=== PATIENT | male | born 1960 | race Caucasian/White ===

== ENCOUNTER 2017-03-06 06:36 | Inpatient (IN) | payer BC ==
[2017-03-06] MEDS ORDERED: dilTIAZem HCL 50 MG/10 ML - 10 ML VIAL IVPUSH ONE ×3 (06:56→14:00)
[2017-03-06] MEDS ORDERED: SODIUM CHLORIDE 0.9% 1000 ML INFUS.BAG IV ONE (06:57)
[2017-03-06 07:00] VITALS: BMI 24.0
[2017-03-06] MEDS ORDERED: dilTIAZem HCL 125 MG/25 ML - 25 ML VIAL ONE ×2 (07:13→08:36)
--- NOTE | 2017-03-06 07:19 | PDOC ---
History of Present Illness - General Chief Complaint: Irregular Heart Beat Stated Complaint: IRREGULAR HEARTBEAT Time Seen by Provider: 03/06/17 06:54 - History of Present Illness Initial Comments: 03/06/17 07:18 Patient is a 56 y.o. male with a PMH of Atrial Fibrillation w/L sided PE who presents to our ED this morning w/ a c/o of palpitations, one episode of watery non-bloody diarrhea that woke him from sleep. Patient states he has a h/o PE in 2008 for which he was on Warfarin for 2 years. He subsequently was on Metoprolol for AFib which was also discontinued. Patient denies any current shortness of breath, chest pain or lightheadedness as well any any identifiable inciting events including fevers, recent over exertion or medication changes. Patient notes after onset of symptoms he called Dr. Amaral, his PCP, who instructed him to come to the ED for evaluation. Allergy: Penicillin PMD: Androne Social: denies cigarettes, social alcohol, denies recreational drugs Past History - Past Medical History Allergies/Adverse Reactions: Allergies Allergy/AdvReac Type Severity Reaction Status Date / Time Penicillins AdvReac Itching Verified 03/06/17 06:50 Home Medications: Ambulatory Orders Loratadine [Claritin -] 10 mg PO DAILY 09/27/15 Aspirin [Ethan Chewable] 81 mg PO DAILY 03/06/17 Cardiac Disorders: Yes (afib after ruptured kidney stone; took meds for 2 years. no recurrence) Kidney Stones: Yes - Surgical History Appendectomy: Yes - Immunization History Immunization Up to Date: Yes - Suicide/Smoking/Psychosocial Hx Smoking Status: No Smoking History: Never smoked Have you smoked in the past 12 months: No Number of Cigarettes Smoked Daily: 0 Information on smoking cessation initiated: No Hx Alcohol Use: No Drug/Substance Use Hx: No Substance Use Type: None Review of Systems - Review of Systems Constitutional: No: Chills, Fever HEENTM: No: Blurred Vision, Double Vision Respiratory: No: Cough, Shortness of Breath Cardiac (ROS): Yes: Palpitations. No: Chest Pain, Lightheadedness, Chest Tightness ABD/GI: Yes: Diarrhea (watery, formed stool, non) *Physical Exam - Vital Signs Last Vital Signs Temp Pulse Resp BP Pulse Ox 140 H 14 91/69 100 03/06/17 06:51 03/06/17 06:51 03/06/17 06:51 03/06/17 06:51 ED Treatment Course - LABORATORY CBC & Chemistry Diagram: 03/06/17 08:04 03/06/17 07:11 - Medications Given in the ED: ED Medications Discontinued Medications Generic Name Dose Route Start Last Admin Trade Name Yvan PRN Reason Stop Dose Admin Diltiazem HCl 15 mg 03/06/17 06:56 03/06/17 07:11 Cardizem Injection - IVPUSH 03/06/17 06:57 15 mg ONCE ONE Administration Sodium Chloride 1,000 ml 03/06/17 06:57 03/06/17 07:11 Normal Saline - IV 03/06/17 06:58 1,000 ml ONCE ONE Administration Medical Decision Making - Medical Decision Making 03/06/17 07:40 Patient is a 56 y.o. male who presents with acute onset of Atrial Fibrillation ( previous AFib with PE, however not currently on A/C) with HR 140's. PLAN: 1. Dilitiazem 2. 1 L IV NS Reasess 03/06/17 08:38 EKG shows Afib HR 141, no deviations, poor R wave progression leads V4-V6. Patient remains tachycardic (100's-140's) as well as hypotensive (90's/70's) s/ p 1 L IV NS. Patient to be adminstered additional 1 L IV NS as well as 20 Dilitiazem. Labs pending. Patient may need A/C prior to discharge, likely disposition is OB admission 03/06/17 09:38 Case d/w cardiology (Dr. Santana) covering for Dr. Rasheed. Patient to be administered Heparin with plans to transition to outpatient oral therapy. Patient to be admitted to observation telemetry under Dr. Amaral. Repeat VS 115/70 HR 90's-120's s/p 2 L IV NS as well as Cardizem IV x2 as well Cardizem 30 PO. Will continue to monitor patient while he remains in ED. *DC/Admit/Observation/Transfer Diagnosis at time of Disposition: Atrial fibrillation - Discharge Dispostion Condition at time of disposition: Good Admit: No - Referrals Referrals: Randy Amaral MD [Primary Care Provider] - - Patient Instructions - Post Discharge Activity
--- NOTE | 2017-03-06 07:30 | PDOC ---
Attending Attestation - Resident Resident Name: Martina Rader - HPI HPI: 03/06/17 08:55 Pt presents to the ED complaining of palpitations. Patient awoke with an episode of severe diarrhea at 3 am. after diarrhea resolved, patient continued to feel palpitations, and presented to the ED. Denies shortness of breath or chest pain. Denie slightheadness. Patient has had rapid a fib in the past, was treated with metoprolol for two years, and did not have any recurrent episodes, so metoprolol was discontinued. - Physicial Exam PE: 03/06/17 08:57 Agree with resident exam. Patient is well appearing, and alert and oriented x 3 , but is tachycardic. - Medical Decision Making 03/06/17 08:58 Pt presents to the ED with rapid a fib. Denies chest pain or shortness of breath. Tachycardic and mildly hypotensive, improving after IV fluid and cardizem. Will admit for observation, continue IVF, give PO cardizem.
[2017-03-06 08:12] LABS: BASOPHIL 0.3 % (0-2.0); EOSINOPHIL 0.6 % (0-4.5); MCH 26.7 pg (25.7-33.7); MCHC 32.7 g/dl (32.0-35.9); MEAN CELL VOLUME 81.8 fl (80-96); MEAN PLT VOLUME 9.1 fl (7.5-11.1); PLATELET COUNT 227 K/MM3 (134-434); RDW 13.4 % (11.9-15.9)
[2017-03-06 08:28] LABS: INR 1.08 (0.82-1.09); PROTHROMBIN TIME (PATIENT) 12.2 SEC (9.98-11.88)
[2017-03-06 08:31] LABS: ACTIVATED PTT 27.4 SECONDS (26.9-34.4)
[2017-03-06] MEDS ORDERED: SODIUM CHLORIDE 0.9% 500 ML INFUS.BAG IV ONE (08:32)
[2017-03-06 08:44] LABS: ALBUMIN 3.6 g/dl (3.4-5.0); ANION GAP 11 (8-16); BILIRUBIN,TOTAL 0.5 mg/dL (0.2-1.0); CALCIUM 8.1 mg/dL (8.5-10.1); CO2 25 mmol/L (21-32); CPK 150 IU/L (39-308); CREATININE 1.1 mg/dL (0.7-1.3); GLUCOSE,RANDOM 102 mg/dL (74-106); SGOT/AST 20 U/L (15-37); SGPT/ALT 31 U/L (12-78); TOT PROT 6.7 g/dl (6.4-8.2)
[2017-03-06 08:47] LABS: ALK PHOS 72 U/L (45-117); TROPONIN I < 0.02 ng/ml (0.00-0.05)
[2017-03-06] MEDS ORDERED: HEPARIN NA (PORCINE) 5,000 UNITS/ML 1ML VIAL IVPUSH PRN ×4 (09:05→09:35)
[2017-03-06] MEDS ORDERED: HEPARIN INFUSION - 500 ML IV SCH (09:15)
[2017-03-06] MEDS ORDERED: dilTIAZem HCL 30 MG TABLET (FP) PO ONE (09:24)
[2017-03-06] MEDS ORDERED: HEPARIN INFUSION - 25,000 UNITS/500 ML INFUS.BAG IVPB ONE (09:28)
[2017-03-06] MEDS ORDERED: dilTIAZem HCL 30 MG TABLET (FP) ONE (09:28)
[2017-03-06] MEDS: HEPARIN INFUSION - 25,000 UNITS/500 ML INFUS.BAG IVPB SCH ×2 (09:58→17:32)
--- NOTE | 2017-03-06 13:52 | HP ---
Admitting History and Physical - Primary Care Physician PCP: Randy Amaral - Admission Chief Complaint: Palpitations History of Present Illness: Pt woke up this 4 AM with paplitation, slightly lightheadedness, no SOB, CP; pt also had an episode of diarrhea. Pt with Hx/o PE, was on Warfarin for couple of years, and A Fib. History Source: Patient - Past Medical History Cardiovascular: Yes: AFIB Pulmonary: Yes: Pulmonary Embolus - Smoking History Smoking history: Never smoked Have you smoked in the past 12 months: No Aproximately how many cigarettes per day: 0 - Alcohol/Substance Use Hx Alcohol Use: No Home Medications - Allergies Allergies/Adverse Reactions: Allergies Allergy/AdvReac Type Severity Reaction Status Date / Time Penicillins AdvReac Itching Verified 03/06/17 06:50 - Home Medications Home Medications: Ambulatory Orders Loratadine [Claritin -] 10 mg PO DAILY 09/27/15 Aspirin [Ethan Chewable] 81 mg PO DAILY 03/06/17 Review of Systems - Review of Systems Constitutional: denies: Chills, Fever Eyes: reports: Blurred Vision. denies: Double Vision HENT: denies: Ear Discharge, Ear Pain, Epistaxis, Nasal Congestion Cardiovascular: denies: Chest Pain, Edema, Palpitations Respiratory: reports: Wheezing. denies: Cough, SOB Gastrointestinal: reports: Vomiting. denies: Abdominal Pain, Constipation, Diarrhea, Nausea Genitourinary: denies: Burning, Discharge, Dysuria, Flank Pain Musculoskeletal: denies: Back Pain, Joint Swelling Integumentary: denies: Bruising, Rash Neurological: denies: Change in LOC, Change in Speech, Confusion Endocrine: denies: Excessive Sweating, Intolerance to Cold Psychiatric: denies: Altered Sleep Pattern, Anxiety, Depression Physical Examination Vital Signs: Vital Signs Temperature 98.2 F 03/06/17 13:41 Pulse Rate 144 H 03/06/17 13:41 Respiratory Rate 14 03/06/17 13:41 Blood Pressure 114/68 03/06/17 13:41 O2 Sat by Pulse Oximetry (%) 99 03/06/17 12:14 Constitutional: Yes: No Distress, Calm Eyes: Yes: Conjunctiva Clear, EOM Intact, PERRL HENT: Yes: Normocephalic. No: Epistaxis, Rhinnorhea Neck: Yes: Trachea Midline. No: Lymphadenopathy Cardiovascular: Yes: Tachycardia, S1, S2 Respiratory: Yes: CTA Bilaterally. No: Rales Gastrointestinal: Yes: Normal Bowel Sounds, Soft. No: Tenderness ...Rectal Exam: Yes: Deferred Renal/: No: CVA Tenderness - Left, CVA Tenderness - Right Musculoskeletal: No: Back Pain, Joint Stiffness, Joint Swelling Edema: No Integumentary: No: Rash Neurological: Yes: Alert, Oriented, Cran Nerves II-XII Intact Labs: CBC, BMP 03/06/17 08:04 03/06/17 07:11 Imaging - Results Chest X-ray: Report Reviewed Problem List - Problems (1) Chronic atrial fibrillation with rapid ventricular response Code(s): I48.2 - CHRONIC ATRIAL FIBRILLATION (2) History of pulmonary embolism Code(s): Z86.711 - PERSONAL HISTORY OF PULMONARY EMBOLISM Assessment/Plan IAdmit to Telemetry Cardizem IV PRN Cardizem PO IV Heparin Cardio Consult Serial CE. AM labs Pt's condition was reviewed with pt and his ; all questions were answered.
[2017-03-06] MEDS ORDERED: METOPROLOL TARTRATE 25 MG TABLET (FP) PO SCH (14:15)
[2017-03-06] MEDS: dilTIAZem HCL 30 MG TABLET (FP) PO SCH ×3 (15:41→21:20)
[2017-03-06 16:10] LABS: CPK 121 IU/L (39-308); TROPONIN I < 0.02 ng/ml (0.00-0.05)
[2017-03-06] MEDS ORDERED: dilTIAZem HCL 50 MG/10 ML - 10 ML VIAL IVPUSH PRN (16:18)
--- NOTE | 2017-03-06 16:31 | EKG ---
Test Reason : Blood Pressure : / mmHG Vent. Rate : 141 BPM Atrial Rate : 147 BPM P-R Int : 000 ms QRS Dur : 094 ms QT Int : 308 ms P-R-T Axes : 000 051 044 degrees QTc Int : 471 ms ATRIAL FIBRILLATION WITH RAPID VENTRICULAR RESPONSE NONSPECIFIC ST ABNORMALITY ABNORMAL ECG WHEN COMPARED WITH ECG OF 09-JAN-2013 09:41, ATRIAL FIBRILLATION HAS REPLACED SINUS RHYTHM VENT. RATE HAS INCREASED BY [address] NOW DEPRESSED IN INFERIOR LEADS Confirmed by IHSAN MARQUES MD ([id number]) on 03/06/2017 4:31:19 PM Referred By: Confirmed By:IHSAN MARQUES MD
[2017-03-07 08:03] LABS: ANION GAP 9 (8-16); CALCIUM 8.2 mg/dL (8.5-10.1); CO2 24 mmol/L (21-32); GLUCOSE,RANDOM 101 mg/dL (74-106)
[2017-03-07] MEDS: dilTIAZem HCL 30 MG TABLET (FP) PO SCH (09:16)
--- NOTE | 2017-03-07 10:25 | CON.CARD ---
Consult Consult Specialty:: Cardiology Referred by:: Randy Amaral MD Reason for Consultation:: Rapid atrial fibrillation - History of Present Illness Chief Complaint: Palpitations History of Present Illness: Pt with h/o PE, paroxysmal afib off meds awoke with palpitation, mild lightheadedness, without associated SOB, chest pain, true syncope, referable to rapid afib, now in sinus rhythm after rate-control with Cardizem, also episode of diarrhea. He reports fatigue on Toprol XL previously prescribed improved after reduction of dose. - History Source History Provided By: Patient Limitations to Obtaining History: No Limitations - Past Medical History Cardio/Vascular: Yes: AFIB Pulmonary: Yes: Pulmonary Embolus - Alcohol/Substance Use Hx Alcohol Use: No - Smoking History Smoking history: Never smoked Have you smoked in the past 12 months: No Aproximately how many cigarettes per day: 0 Home Medications - Allergies Allergies/Adverse Reactions: Allergies Allergy/AdvReac Type Severity Reaction Status Date / Time Penicillins AdvReac Itching Verified 03/06/17 06:50 - Home Medications Home Medications: Ambulatory Orders Loratadine [Claritin -] 10 mg PO DAILY 09/27/15 Aspirin [Ethan Chewable] 81 mg PO DAILY 03/06/17 Review of Systems - Review of Systems Cardiovascular: reports: Palpitations Neurological: reports: Dizziness Vital Signs: Vital Signs Temperature 98 F 03/07/17 08:07 Pulse Rate 72 03/07/17 08:07 Respiratory Rate 20 03/07/17 08:07 Blood Pressure 117/72 03/07/17 08:07 O2 Sat by Pulse Oximetry (%) 98 03/07/17 08:00 Constitutional: Yes: No Distress, Calm Neck: Yes: Supple Respiratory: Yes: Regular, CTA Bilaterally Gastrointestinal: Yes: Normal Bowel Sounds, Soft Cardiovascular: Yes: Regular Rate and Rhythm JVD: No Carotid Bruit: No Heart Sounds: Yes: S1, S2 Murmur: Yes: Systolic Murmur, Grade 1 Edema: No - Other Data Labs, Other Data: CBC, BMP 03/06/17 08:04 03/07/17 05:19 INR, PTT INR 1.08 (0.82-1.09) 03/06/17 07:11 Troponin, BNP 03/06/17 14:40 Troponin I < 0.02 Troponin, BNP 03/06/17 14:40 Troponin I < 0.02 Afib @ 141 Tele: Afib->SR Ejection Fraction %: LVEF > or = 40 % Imaging - Results Chest X-ray: Report Reviewed (NAD) Problem List - Problems (1) Palpitations Code(s): R00.2 - PALPITATIONS (2) Atrial fibrillation Code(s): I48.91 - UNSPECIFIED ATRIAL FIBRILLATION Qualifiers: Atrial fibrillation type: paroxysmal Qualified Code(s): I48.0 - Paroxysmal atrial fibrillation (3) History of pulmonary embolism Code(s): Z86.711 - PERSONAL HISTORY OF PULMONARY EMBOLISM Assessment/Plan 03/06/2017 Echo: Normal biventricular size and fxn, mild MR, normal biatrial sizes 1. Palpitations referable to 2. Paroxysmal atrial fibrillation-> Sinus rhythm [id number] 3. H/o pulmonary embolism post anticoagulation course P:1. Change Cardizem CD 120 qd 2. D/c heparin and continue Asa 81 QD given low risk score 3. Patient may be d/mari from CV standpoint with f/u in office 4. Addressed option of PVI for PAF if recurs, not interested at this time 5. Thank you for consultative opportunity
--- NOTE | 2017-03-07 10:37 | PN ---
Progress Note, Physician History of Present Illness: Pt w/o Sob, CP, palp, dizzness, lightheadedness, blurry vision. - Current Medication List Current Medications: Active Medications Diltiazem HCl (Cardizem -) 30 mg PO QID DAVI Last Admin: 03/07/17 09:16 Dose: 30 mg Diltiazem HCl (Cardizem Injection -) 10 mg IVPUSH Q4H PRN Last Admin: 03/06/17 18:45 Dose: 10 mg Heparin Sodium (Porcine) (Heparin -) 1,000 unit IVPUSH PRN PRN PRN Reason: Heparin Heparin Sodium (Porcine) (Heparin -) 5,000 unit IVPUSH PRN PRN PRN Reason: Heparin Last Admin: 03/06/17 17:32 Dose: 5,000 unit Heparin Sodium/Dextrose (Heparin Infusion -) 25,000 units in 500 mls @ 16 mls/ hr IVPB TITR DAVI; 800 UNITS/HR PRN Reason: Protocol Last Titration: 03/07/17 08:14 Dose: 800 units/hr, 16 mls/hr - Objective Vital Signs: Vital Signs Temperature 98 F 03/07/17 08:07 Pulse Rate 72 03/07/17 08:07 Respiratory Rate 20 03/07/17 08:07 Blood Pressure 117/72 03/07/17 08:07 O2 Sat by Pulse Oximetry (%) 98 03/07/17 08:00 Constitutional: Yes: No Distress, Calm Cardiovascular: Yes: Regular Rate and Rhythm, S1, S2 Respiratory: Yes: Regular, CTA Bilaterally Gastrointestinal: Yes: Normal Bowel Sounds, Soft. No: Tenderness Edema: No Neurological: Yes: Alert, Oriented, Cran Nerves II-XII Intact Labs: CBC, BMP 03/06/17 08:04 03/07/17 05:19 INR, PTT INR 1.08 (0.82-1.09) 03/06/17 07:11 Problem List - Problems (1) Chronic atrial fibrillation with rapid ventricular response Code(s): I48.2 - CHRONIC ATRIAL FIBRILLATION (2) History of pulmonary embolism Code(s): Z86.711 - PERSONAL HISTORY OF PULMONARY EMBOLISM Assessment/Plan Pt is admitted to Telemetry. Cardizem PO. IV Heparin. Cardio Consult appreciated; case was d/w Dr. Rasheed, pt to be switched to PO Cardizem CD, no need for AC, have EKG repeated, walk and monitor HR. If all is w /i NL to send pt home today. Case was d/w pt's nurse
[2017-03-07] MEDS ORDERED: ASPIRIN 81 MG CHEWABLE TABLETS PO SCH (11:00)
--- NOTE | 2017-03-07 11:16 | EKG ---
Test Reason : Blood Pressure : / mmHG Vent. Rate : 136 BPM Atrial Rate : 150 BPM P-R Int : 000 ms QRS Dur : 086 ms QT Int : 322 ms P-R-T Axes : 000 060 061 degrees QTc Int : 484 ms ATRIAL FIBRILLATION WITH RAPID VENTRICULAR RESPONSE ABNORMAL ECG Confirmed by PIERCE KRAMER MD ([id number]) on 03/07/2017 11:16:23 AM Referred By: Confirmed By:PIERCE KRAMER MD
[2017-03-07 14:01] VITALS: BP 106/65; PULSE 73; TEMP 98.7
--- NOTE | 2017-03-07 14:51 | DS ---
Physical Examination Vital Signs: Vital Signs Temperature 98.7 F 03/07/17 14:01 Pulse Rate 73 03/07/17 14:01 Respiratory Rate 20 03/07/17 14:01 Blood Pressure 106/65 03/07/17 14:01 O2 Sat by Pulse Oximetry (%) 98 03/07/17 08:00 Findings/Remarks: SEE AM Progress Note Labs: CBC, BMP 03/06/17 08:04 03/07/17 05:19 Discharge Summary Reason For Visit: ATRIAL FIBRILLATION Current Active Problems Atrial fibrillation (Acute) Chronic atrial fibrillation with rapid ventricular response (Acute) History of pulmonary embolism (Acute) Palpitations (Acute) Procedures: Principal: ECHO Other Procedures: CXR. EKGs Hospital Course: Pt came to ER after wake up with palpitations, felt his heart beating fast. IN ER pt was found in A FIB with RVR. Pt received Cardizem IV and PO, started on IV Heparin, admitted to Telemetry; he converted to SR, CE were negative. Pt was seen by Cardio (Dr. Rasheed) and cleared for DC with ouptpatient f/u. Condition: Good - Instructions Diet, Activity, Other Instructions: Regular Referrals: Jed Rasheed MD [Staff Physician] - (in 1-2 weeks) Randy Amaral MD [Primary Care Provider] - (next week) Disposition: HOME - Home Medications Comprehensive Discharge Medication List: Ambulatory Orders Loratadine [Claritin -] 10 mg PO DAILY 09/27/15 Aspirin [Ethan Chewable Aspirin] 81 mg PO DAILY 03/06/17 Diltiazem Cd [Cardizem Cd -] 120 mg PO DAILY. Start 03/08/2017
--- NOTE | 2017-03-11 15:47 | EKG ---
Test Reason : Blood Pressure : / mmHG Vent. Rate : 069 BPM Atrial Rate : 069 BPM P-R Int : 132 ms QRS Dur : 102 ms QT Int : 396 ms P-R-T Axes : 056 058 058 degrees QTc Int : 424 ms NORMAL SINUS RHYTHM INCOMPLETE RBBB WHEN COMPARED WITH ECG OF 06-MAR-2017 08:38, SINUS RHYTHM HAS REPLACED ATRIAL FIBRILLATION Confirmed by CHAR PUGH MD ([id number]) on 03/11/2017 3:46:39 PM Referred By: Confirmed By:CHAR PUGH MD
--- NOTE | 2017-03-11 15:50 | EKG ---
Test Reason : Blood Pressure : / mmHG Vent. Rate : 086 BPM Atrial Rate : 326 BPM P-R Int : 000 ms QRS Dur : 094 ms QT Int : 348 ms P-R-T Axes : 000 054 055 degrees QTc Int : 416 ms ATRIAL FIBRILLATION RSR' ABNORMAL ECG WHEN COMPARED WITH ECG OF 06-MAR-2017 08:31, VENT. RATE HAS DECREASED BY 50 BPM Confirmed by CHAR PUGH MD ([id number] on 03/11/2017 3:49:39 PM Referred By: Confirmed By:CHAR PUGH MD
== END 2017-03-07 15:05 | disposition home or self-care (01) | DRG 310 ==
LOC: JER 06:36 → JERBED 09:36 → J4W 13:19 → OBSVTOIN 13:41
PROVIDERS: ADMIT Specialist; ATTEND Specialist
DX: I48.0 Paroxysmal atrial fibrillation (principal); R00.2 Palpitations; Z86.711 Personal history of pulmonary embolism
CPT/HCPCS: 36415; 71010-TC; 80048; 80053; 82550; 82553; 83735; 84443; 84484; 85025; 85610; 85730; 93005; 93010; 93306-TC; 99285-25; G0378; J1644

== ENCOUNTER 2020-10-18 09:08 | Inpatient (IN) | payer BC, OTHER ==
[2020-10-18 09:37] VITALS: BMI 26.6
[2020-10-18] MEDS ORDERED: LACTATED RINGERS SOLUTION 1,000 ML/1,000 ML INFUS.BAG IV STA (09:51)
[2020-10-18] MEDS ORDERED: dilTIAZem HCL 50 MG/10 ML - 10 ML VIAL IVPUSH ONE ×3 (09:51→13:49)
[2020-10-18] MEDS ORDERED: dilTIAZem HCL 125 MG/25 ML - 25 ML VIAL ONE ×2 (10:02→14:10)
[2020-10-18 10:11] LABS: BASO % 0.4 % (0-2.0); EOS % 0.6 % (0-4.5); HEMATOCRIT 48.5 % (35.4-49); HEMOGLOBIN 15.9 GM/dL (11.7-16.9); LYMPH % 14.3 % (8-40); MCH 26.6 pg (25.7-33.7); MCHC 32.9 g/dl (32.0-35.9); MEAN PLT VOLUME 8.6 fl (7.5-11.1); MONO % 7.1 % (3.8-10.2); NEUT % 77.6 % (42.8-82.8); PLATELET COUNT 234 10^3/uL (134-434); RBC 5.99 M/mm3 (4.00-5.60); RDW 14.3 % (11.9-15.9); WHITE BLOOD COUNT 11.3 K/mm3 (4.0-10.0)
[2020-10-18 10:17] LABS: INR 1.02 (0.83-1.09); PROTHROMBIN TIME (PATIENT) 12.5 SEC (9.7-13.0)
[2020-10-18 10:28] LABS: CHLORIDE 106 mmol/L (98-107); SODIUM 138 mmol/L (136-145)
[2020-10-18 10:30] LABS: ALBUMIN 4.1 g/dl (3.4-5.0); ANION GAP 14 MMOL/L (8-16); BLOOD UREA NITROGEN 11.9 mg/dL (7-18); CALCIUM 9.1 mg/dL (8.5-10.1); CO2 18 mmol/L (21-32); GLUCOSE,RANDOM 127 mg/dL (74-106)
[2020-10-18 10:32] LABS: SGOT/AST 27 U/L (15-37); SGPT/ALT 33 U/L (13-61)
[2020-10-18 10:34] LABS: TOT PROT 7.4 g/dl (6.4-8.2)
[2020-10-18 10:36] LABS: ALK PHOS 79 U/L (45-117)
[2020-10-18] MEDS ORDERED: dilTIAZem HCL 30 MG TABLET PO ONE (12:07)
[2020-10-18] MEDS ORDERED: dilTIAZem HCL 30 MG TABLET ONE (12:42)
[2020-10-18 13:40] LABS: PH,URINE 8.5 (5.0-8.0); URINE APPEARANCE CLEAR; URINE BILIRUBIN NEGATIVE (NEGATIVE); URINE COLOR YELLOW; URINE GLUCOSE (UA) NEGATIVE (NEGATIVE); URINE KETONE 1+ (NEGATIVE); URINE LEUK ESTERASE NEGATIVE (NEGATIVE); URINE NITRITE NEGATIVE (NEGATIVE); URINE PROTEIN TRACE (NEGATIVE); URINE UROBILINOGEN 0.2 mg/dL (0.2-1.0)
[2020-10-18] MEDS ORDERED: METOPROLOL TARTRATE 5 MG/5 ML VIAL IVPUSH ONE (15:07)
[2020-10-18] MEDS ORDERED: METOPROLOL TARTRATE 5 MG/5 ML VIAL ONE (15:09)
[2020-10-18] MEDS ORDERED: APIXABAN 5 MG TABLET ONE (16:38)
[2020-10-18] MEDS ORDERED: METOPROLOL TARTRATE 50 MG TABLET (FP) ONE (17:42)
[2020-10-18] MEDS: METOPROLOL TARTRATE 50 MG TABLET (FP) PO SCH ×2 (18:05→22:46)
[2020-10-19 07:26] LABS: BASO % 0.3 % (0-2.0); EOS % 0.7 % (0-4.5); HEMATOCRIT 45.1 % (35.4-49); HEMOGLOBIN 14.7 GM/dL (11.7-16.9); LYMPH % 22.9 % (8-40); MCH 26.7 pg (25.7-33.7); MCHC 32.6 g/dl (32.0-35.9); MEAN CELL VOLUME 81.8 fl (80-96); MEAN PLT VOLUME 8.6 fl (7.5-11.1); MONO % 9.9 % (3.8-10.2); NEUT % 66.2 % (42.8-82.8); PLATELET COUNT 209 10^3/uL (134-434); RBC 5.51 M/mm3 (4.00-5.60); RDW 14.4 % (11.9-15.9)
[2020-10-19 07:47] LABS: ALBUMIN 3.3 g/dl (3.4-5.0); CALCIUM 8.5 mg/dL (8.5-10.1)
[2020-10-19 07:49] LABS: BLOOD UREA NITROGEN 14.5 mg/dL (7-18); CREATININE 1.1 mg/dL (0.55-1.3)
[2020-10-19 07:50] LABS: TOT PROT 6.2 g/dl (6.4-8.2)
[2020-10-19] MEDS: ASPIRIN 81 MG CHEWABLE TABLETS PO SCH (10:00)
[2020-10-20] MEDS: ASPIRIN 81 MG CHEWABLE TABLETS PO SCH (09:34)
[2020-10-20 11:51] VITALS: BP 109/74; PULSE 62; TEMP 98.6
== END 2020-10-20 13:51 | disposition home or self-care (01) | DRG 310 ==
LOC: JER 09:08 → JERBED 13:47 → J4W 18:18
PROVIDERS: ADMIT Specialist; ATTEND Specialist
DX: I48.91 Unspecified atrial fibrillation (principal); R42 Dizziness and giddiness; Z86.711 Personal history of pulmonary embolism; M54.5 Low back pain
CPT/HCPCS: 36415; 71045-TC-FY; 80053; 81003; 82550; 82553; 82962; 84439; 84443; 84484; 85025; 85610; 85730; 86850; 86900; 86901; 87086; 93005; 93010; 99285-25; C9803; U0003; U0005

== ENCOUNTER 2023-05-05 10:06 | Inpatient (IN) | payer OTHER ==
[2023-05-05] MEDS ORDERED: SODIUM CHLORIDE 1,000 ML IV STA (11:59)
[2023-05-05 12:39] LABS: BASO % 0.2 % (0-2.0); EOS % 0.3 % (0-4.5); HEMATOCRIT 48.1 % (35.4-49); HEMOGLOBIN 15.8 GM/dL (11.7-16.9); LYMPH % 14.5 % (8-40); MCH 26.9 pg (25.7-33.7); MCHC 32.7 g/dl (32.0-35.9); MEAN PLT VOLUME 8.7 fl (7.5-11.1); MONO % 9.6 % (3.8-10.2); NEUT % 75.4 % (42.8-82.8); PLATELET COUNT 255 10^3/uL (134-434); RBC 5.87 M/mm3 (4.00-5.60); RDW 13.8 % (11.9-15.9); WHITE BLOOD COUNT 11.9 K/mm3 (4.0-10.0)
[2023-05-05 13:03] LABS: POTASSIUM 3.9 mmol/L (3.5-5.1)
[2023-05-05 13:05] LABS: CALCIUM 9.9 mg/dL (8.5-10.1)
[2023-05-05 13:06] LABS: ALBUMIN 3.8 g/dl (3.4-5.0); BLOOD UREA NITROGEN 15.1 mg/dL (7-18)
[2023-05-05 13:10] LABS: BILIRUBIN,TOTAL 2.1 mg/dL (0.2-1); TOT PROT 7.3 g/dl (6.4-8.2)
[2023-05-05 13:23] LABS: EPI CELLS 1 /uL (0-25.1); HYALINE CASTS 0 /uL (0-3.1); PH,URINE 5.5 (5.0-8.0); URINE APPEARANCE CLEAR; URINE BACTERIA 1 /uL (0-1359); URINE BILIRUBIN 1+ (NEGATIVE); URINE COLOR DK YELLOW; URINE GLUCOSE (UA) NEGATIVE (NEGATIVE); URINE KETONE 2+ (NEGATIVE); URINE LEUK ESTERASE NEGATIVE (NEGATIVE); URINE NITRITE NEGATIVE (NEGATIVE); URINE PROTEIN NEGATIVE (NEGATIVE); URINE RBC 25 /uL (0-23.9); URINE WBC 5 /uL (0-25.8)
[2023-05-05] MEDS ORDERED: oxyCODONE HCL 5 MG TABLET PO PRN (15:18)
[2023-05-05] MEDS ORDERED: SODIUM CHLORIDE 1,000 ML IV SCH (15:30)
[2023-05-05] MEDS ORDERED: LACTATED RINGERS SOLUTION 1,000 ML/1,000 ML INFUS.BAG IV SCH (15:45)
[2023-05-05] MEDS ORDERED: CEFTRIAXONE 1 GM/50 ML BAG ONE (15:49)
[2023-05-05] MEDS: CEFTRIAXONE 1 GM in DEXTROSE 5%-WATER - 50 ML IVPB SCH ×2 (15:58→16:17)
[2023-05-05 20:22] VITALS: BMI 26.2
[2023-05-05] MEDS: HEPARIN NA (PORCINE) 5,000 UNITS/ML 1ML VIAL SQ SCH (22:06)
[2023-05-06] MEDS ORDERED: INDOMETHACIN 50 MG RECTAL SUPPOSITORY PR ONE ×2 (10:00→15:45)
[2023-05-06] MEDS: CEFTRIAXONE 1 GM in DEXTROSE 5%-WATER - 50 ML IVPB SCH (10:45)
[2023-05-06] MEDS: HEPARIN NA (PORCINE) 5,000 UNITS/ML 1ML VIAL SQ SCH ×2 (10:46→21:57)
[2023-05-06 11:32] LABS: BASO % 0.4 % (0-2.0); EOS % 0.4 % (0-4.5); HEMATOCRIT 45.5 % (35.4-49); HEMOGLOBIN 14.7 GM/dL (11.7-16.9); INR 1.28 (0.83-1.09); LYMPH % 21.9 % (8-40); MCH 26.6 pg (25.7-33.7); MCHC 32.4 g/dl (32.0-35.9); MEAN CELL VOLUME 82.2 fl (80-96); MEAN PLT VOLUME 9.3 fl (7.5-11.1); MONO % 8.5 % (3.8-10.2); NEUT % 68.8 % (42.8-82.8); PLATELET COUNT 230 10^3/uL (134-434); PROTHROMBIN TIME (PATIENT) 14.8 SEC (9.7-13.0); RBC 5.53 M/mm3 (4.00-5.60); RDW 14.2 % (11.9-15.9); WHITE BLOOD COUNT 8.1 K/mm3 (4.0-10.0)
[2023-05-06 11:51] LABS: POTASSIUM 4.1 mmol/L (3.5-5.1)
[2023-05-06 11:54] LABS: ALBUMIN 3.2 g/dl (3.4-5.0)
[2023-05-06 11:56] LABS: AMYLASE 82 U/L (25-115); BILIRUBIN,DIRECT 0.3 mg/dL (0.0-0.2)
[2023-05-06 11:57] LABS: CREATININE 0.9 mg/dL (0.55-1.3)
[2023-05-06 11:58] LABS: BILIRUBIN,TOTAL 1.9 mg/dL (0.2-1); TOT PROT 6.4 g/dl (6.4-8.2)
[2023-05-06 12:00] LABS: CALCIUM 8.3 mg/dL (8.5-10.1)
[2023-05-06] MEDS ORDERED: BUPIVACAINE HCL/PF 0.25% (2.5MG/ML) 10 ML VIAL ONE (12:45)
[2023-05-06] MEDS ORDERED: INDOCYANINE GREEN 25 MG/10 ML VIAL IVPUSH ONE (12:52)
[2023-05-06] MEDS ORDERED: MIDAZOLAM HCL 2 MG/2 ML SINGLE DOSE VIAL ONE (14:06)
[2023-05-06] MEDS ORDERED: PROPOFOL 40 ML ONE (14:06)
[2023-05-06] MEDS ORDERED: SUCCINYLCHOLINE CHLORIDE 200 MG/10 ML SYRINGE ONE (14:06)
[2023-05-06] MEDS ORDERED: ROCURONIUM BROMIDE 50 MG/5 ML SYRINGE ONE (14:06)
[2023-05-06] MEDS ORDERED: HYDROmorphone HCl 2 MG/ML VIAL ONE (14:11)
[2023-05-06] MEDS ORDERED: BUPIVACAINE HCL/PF 0.25% (2.5MG/ML) 10 ML VIAL IJ ONE (14:23)
[2023-05-06] MEDS ORDERED: DEXAMETHASONE SOD PHOSPHATE 4 MG/1 ML VIAL ONE (14:32)
[2023-05-06] MEDS ORDERED: ONDANSETRON 4 MG/2 ML VIAL ONE (14:32)
[2023-05-06] MEDS ORDERED: KETOROLAC TROMETHAMINE 30 MG/1 ML VIAL ONE (14:32)
[2023-05-06] MEDS ORDERED: NEOSTIGMINE METHYLSULFATE 0.5 MG/1 ML - 10 ML MDV ONE (14:59)
[2023-05-06] MEDS ORDERED: PROMETHAZINE HCL 25 MG/1 ML VIAL IVPB PRN (15:23)
[2023-05-06] MEDS: LACTATED RINGERS SOLUTION 1,000 ML IV SCH (15:30)
[2023-05-06] MEDS ORDERED: LACTATED RINGERS SOLUTION 1,000 ML/1,000 ML INFUS.BAG IV SCH (15:45)
[2023-05-06] MEDS ORDERED: oxyCODONE HCL 5 MG TABLET PO PRN ×2 (16:59)
[2023-05-06] MEDS ORDERED: HEPARIN NA (PORCINE) 5,000 UNITS/ML 1ML VIAL SQ SCH ×2 (22:00)
[2023-05-07] MEDS: LACTATED RINGERS SOLUTION 1,000 ML IV SCH (00:24)
[2023-05-07] MEDS: HEPARIN NA (PORCINE) 5,000 UNITS/ML 1ML VIAL SQ SCH ×2 (06:34→15:19)
[2023-05-07 09:07] LABS: BASO % 0.1 % (0-2.0); HEMATOCRIT 42.8 % (35.4-49); HEMOGLOBIN 13.9 GM/dL (11.7-16.9); LYMPH % 9.9 % (8-40); MCH 26.7 pg (25.7-33.7); MCHC 32.5 g/dl (32.0-35.9); MEAN CELL VOLUME 82.3 fl (80-96); MEAN PLT VOLUME 9.1 fl (7.5-11.1); MONO % 5.5 % (3.8-10.2); NEUT % 84.5 % (42.8-82.8); PLATELET COUNT 241 10^3/uL (134-434); RDW 13.7 % (11.9-15.9); WHITE BLOOD COUNT 11.6 K/mm3 (4.0-10.0)
[2023-05-07 09:23] LABS: POTASSIUM 4.4 mmol/L (3.5-5.1)
[2023-05-07 09:29] LABS: BLOOD UREA NITROGEN 12.6 mg/dL (7-18)
[2023-05-07 09:32] LABS: CREATININE 1.2 mg/dL (0.55-1.3)
[2023-05-07 09:33] LABS: BILIRUBIN,TOTAL 0.8 mg/dL (0.2-1); TOT PROT 6.3 g/dl (6.4-8.2)
[2023-05-07 13:56] VITALS: BP 112/58; PULSE 72; RESP 18; TEMP 98.9
== END 2023-05-07 14:22 | disposition home or self-care (01) | DRG 418 ==
LOC: JER 10:06 → JERBED 15:12 → J7W 19:10
PROVIDERS: ADMIT Internal Medicine; ATTEND Internal Medicine
PROC: 0FT44ZZ Resection of Gallbladder, Percutaneous Endoscopic Approach (ICD-10-PCS; principal; 2023-05-06 15:30)
DX: K85.10 Biliary acute pancreatitis without necrosis or infection (principal); K81.0 Acute cholecystitis; I48.0 Paroxysmal atrial fibrillation; Z86.711 Personal history of pulmonary embolism
CPT/HCPCS: 0241U-QW; 36415; 74181-TC; 76705-TC; 80053; 81003; 82150; 82248; 82550; 82977; 83690; 85025; 85610; 86140; 86704; 86708; 86803; 87340; 87517; 93005; 93010; 94760; 99285-25; J1644

== ENCOUNTER 2023-09-16 04:30 | Day surgery (SDC) | payer OTHER ==
[2023-09-15 11:21] VITALS: BMI 25.5
[2023-09-16 10:29] VITALS: TEMP 97.1
[2023-09-16 11:05] VITALS: PULSE 81
[2023-09-16 11:07] VITALS: BP 127/77; RESP 14
== END 2023-09-16 11:15 | disposition home or self-care (01) ==
LOC: JASU-ENDO 04:30
PROVIDERS: ATTEND Internal Medicine Gastroenterology
PROC: 0DBL8ZX Excision of Transverse Colon, Via Natural or Artificial Opening Endoscopic, Diagnostic (ICD-10-PCS; 2023-09-16)
PROC: 0DBK8ZX Excision of Ascending Colon, Via Natural or Artificial Opening Endoscopic, Diagnostic (ICD-10-PCS; principal; 2023-09-16 10:00)
DX: Z12.11 Encounter for screening for malignant neoplasm of colon (principal); D12.2 Benign neoplasm of ascending colon; D12.3 Benign neoplasm of transverse colon; K64.8 Other hemorrhoids; Z86.010 Personal history of colon polyps
CPT/HCPCS: 88305-TC

== ENCOUNTER 2023-09-26 13:46 | Day surgery (SDC) | payer OTHER ==
[2023-09-26] MEDS ORDERED: EPINEPHrine 1:10,000 (P-F SYR) 1 MG/10 ML DISP.SYRIN ONE (14:45)
[2023-09-26] MEDS ORDERED: PANTOPRAZOLE SODIUM 80 MG in SODIUM CHLORIDE 100 ML IVPB SCH (14:45)
[2023-09-26 14:47] LABS: BASO % 0.3 % (0-2.0); EOS % 0.5 % (0-4.5); HEMATOCRIT 42.1 % (35.4-49); HEMOGLOBIN 14.1 GM/dL (11.7-16.9); LYMPH % 14.5 % (8-40); MCH 27.5 pg (25.7-33.7); MCHC 33.4 g/dl (32.0-35.9); MEAN CELL VOLUME 82.4 fl (80-96); MEAN PLT VOLUME 8.3 fl (7.5-11.1); NEUT % 76.7 % (42.8-82.8); PLATELET COUNT 234 10^3/uL (134-434); RBC 5.11 M/mm3 (4.00-5.60); RDW 13.8 % (11.9-15.9); WHITE BLOOD COUNT 11.9 K/mm3 (4.0-10.0)
[2023-09-26 14:55] LABS: INR 1.13 (0.83-1.09); PROTHROMBIN TIME (PATIENT) 12.9 SEC (9.7-13.0)
[2023-09-26] MEDS ORDERED: PROMETHAZINE HCL 25 MG/1 ML VIAL IVPB PRN (16:02)
[2023-09-26] MEDS ORDERED: ONDANSETRON 4 MG/2 ML VIAL IVPUSH PRN (16:02)
[2023-09-26 16:05] LABS: POTASSIUM 4.3 mmol/L (3.5-5.1)
[2023-09-26 16:08] LABS: CALCIUM 8.8 mg/dL (8.5-10.1)
[2023-09-26 16:09] LABS: ALBUMIN 3.6 g/dl (3.4-5.0); BLOOD UREA NITROGEN 25.1 mg/dL (7-18)
[2023-09-26 16:12] LABS: CREATININE 0.9 mg/dL (0.55-1.3)
[2023-09-26 16:15] LABS: BILIRUBIN,TOTAL 0.9 mg/dL (0.2-1); TOT PROT 6.9 g/dl (6.4-8.2)
[2023-09-26] MEDS: PANTOPRAZOLE SODIUM 160 MG in SODIUM CHLORIDE 290 ML IVPB SCH (16:45)
[2023-09-26] MEDS: PANTOPRAZOLE SODIUM 40 MG VIAL IVPB ONE (16:47)
[2023-09-26] MEDS: LACTATED RINGERS SOLUTION 1,000 ML IV SCH (17:45)
[2023-09-26 19:50] VITALS: BMI 26.2
[2023-09-27 08:59] LABS: HEMATOCRIT 39.6 % (35.4-49); HEMOGLOBIN 12.9 GM/dL (11.7-16.9); MCH 27.1 pg (25.7-33.7); MCHC 32.6 g/dl (32.0-35.9); MEAN CELL VOLUME 83.2 fl (80-96); PLATELET COUNT 211 10^3/uL (134-434); RBC 4.76 M/mm3 (4.00-5.60); RDW 13.6 % (11.9-15.9); WHITE BLOOD COUNT 8.4 K/mm3 (4.0-10.0)
[2023-09-27 09:19] LABS: POTASSIUM 4.2 mmol/L (3.5-5.1)
[2023-09-27 09:32] LABS: ALBUMIN 3.1 g/dl (3.4-5.0); BLOOD UREA NITROGEN 15.4 mg/dL (7-18); CALCIUM 8.4 mg/dL (8.5-10.1)
[2023-09-27 09:35] LABS: CREATININE 0.9 mg/dL (0.55-1.3)
[2023-09-27 09:37] LABS: BILIRUBIN,TOTAL 1.5 mg/dL (0.2-1); TOT PROT 5.7 g/dl (6.4-8.2)
[2023-09-27 14:04] LABS: BILIRUBIN,DIRECT 0.3 mg/dL (0.0-0.2)
[2023-09-27] MEDS: PANTOPRAZOLE 40 MG TABLET PO SCH (22:02)
[2023-09-28 09:05] LABS: HEMATOCRIT 42.7 % (35.4-49); MCH 27.3 pg (25.7-33.7); MCHC 32.9 g/dl (32.0-35.9); MEAN PLT VOLUME 8.7 fl (7.5-11.1); PLATELET COUNT 228 10^3/uL (134-434); RBC 5.15 M/mm3 (4.00-5.60); RDW 14.1 % (11.9-15.9); WHITE BLOOD COUNT 7.7 K/mm3 (4.0-10.0)
[2023-09-28 09:25] LABS: POTASSIUM 4.4 mmol/L (3.5-5.1)
[2023-09-28 09:31] LABS: ALBUMIN 3.6 g/dl (3.4-5.0)
[2023-09-28 09:33] LABS: CREATININE 1.1 mg/dL (0.55-1.3)
[2023-09-28 09:35] LABS: BILIRUBIN,TOTAL 1.2 mg/dL (0.2-1); TOT PROT 6.8 g/dl (6.4-8.2)
[2023-09-28 09:41] VITALS: BP 107/67; PULSE 58; RESP 16; TEMP 99.1
== END 2023-09-28 09:50 | disposition home or self-care (01) ==
LOC: JER 13:46 → SUATTDRO 14:41 → JASUSAT 14:41 → J6S 17:02 → JASUSAT 09-28 09:50
PROVIDERS: ATTEND Internal Medicine
PROC: 0DJ08ZZ Inspection of Upper Intestinal Tract, Via Natural or Artificial Opening Endoscopic (ICD-10-PCS; 2023-09-26)
PROC: 0DJD8ZZ Inspection of Lower Intestinal Tract, Via Natural or Artificial Opening Endoscopic (ICD-10-PCS; principal; 2023-09-26 16:00)
DX: K92.1 Melena (principal); K64.8 Other hemorrhoids; K21.00 Gastro-esophageal reflux disease with esophagitis, without bleeding; K25.9 Gastric ulcer, unspecified as acute or chronic, without hemorrhage or perforation; K26.9 Duodenal ulcer, unspecified as acute or chronic, without hemorrhage or perforation
CPT/HCPCS: 36415; 80053; 82248; 83036; 85025; 85027; 85610; 86850; 86900; 86901; 93005; 93010; 94760; 99285-25

== ENCOUNTER 2024-01-02 04:33 | Day surgery (SDC) | payer OTHER ==
[2023-12-25 12:14] VITALS: BMI 26.4
[2024-01-02 10:46] VITALS: RESP 12; TEMP 97.9
[2024-01-02 14:04] VITALS: BP 105/58; PULSE 71
== END 2024-01-02 11:35 | disposition home or self-care (01) ==
LOC: JASU-ENDO 04:33
PROVIDERS: ATTEND Internal Medicine Gastroenterology
PROC: 0DB68ZX Excision of Stomach, Via Natural or Artificial Opening Endoscopic, Diagnostic (ICD-10-PCS; 2024-01-02)
PROC: 0DB98ZX Excision of Duodenum, Via Natural or Artificial Opening Endoscopic, Diagnostic (ICD-10-PCS; principal; 2024-01-02 11:00)
DX: K29.80 Duodenitis without bleeding (principal); K29.50 Unspecified chronic gastritis without bleeding; Z87.11 Personal history of peptic ulcer disease
CPT/HCPCS: 88305-TC; 88342-TC